=== PATIENT | male | born 2005 | race Caucasian/White ===

== ENCOUNTER 2024-05-15 13:43 | Emergency (ER) | payer BC, SELFPAY ==
[2024-05-15 13:57] VITALS: BP 137/82; PULSE 76; RESP 16; O2SAT 99; BMI 23.0
--- NOTE | 2024-05-15 14:13 | CRLHL7_ITS ---
For Patients: As a result of the Cures Act, medical imaging exams and procedure reports are released immediately into your electronic medical record. You may view this report before your referring provider. If you have questions, please contact your health care provider. INDICATION: Injury and pain. TECHNIQUE: Left foot 3rd digit three views. COMPARISON: None. FINDINGS: Subtle nondisplaced fracture of the distal phalangeal base. Surrounding soft tissue swelling. Joint alignment is maintained. Mild DIP joint degenerative changes. IMPRESSION: Nondisplaced 3rd toe distal phalangeal base fracture. Dictated by Mike Sarah MD @ 05/15/2024 3:23:51 PM (Electronically Signed)
--- OUTSIDE RECORDS SUMMARY | 2024-05-15 14:33 | XMS_ITS | Encounter Summary ---
Author Organization [facility] Address [address] [place] [address] Care Team Providers Care Assessment Specialist Name Role Phone Unavailable Primary Care Provider Unavailabl e Encounter Details Date Type Department Care Team (Late st Contact Info) Description 03/22/2005 8:30 EST Hospital Encounter [address] [address] Robles Velazquez MD [address] [place] [address], [address] 4 [place] [phone] Social History Tobacco Use Types Packs/Day Years Used Date Smoking Tobacco: Never Smokeless Tobacco: Never Alcohol Use Standard Drinks/Week Comments No 0 (1 standard drink = 0.6 oz pur e alcohol) PHQ-2 Answer Date Recorded PHQ-2 SUBTOTAL 0 12/11/2019 Interpersonal Safety Answer Date Record ed Physically Hurt Never 11/07/2019 Verbally Threaten Not on file 11/07/2019 Sex and Gender Information Value Date Recorded Sex Assigned at Not on file Legal Sex Male 18:32 EST Gender Identity Male 02/24/2019 12:07 EST Sexual Orientation Not on file COVID-19 Exposure Response Date Recorded In the last month, have you been in contact with someone who was confirmed or suspected to have Coronavirus / COVID-19? No / Unsure 08/28/2020 11:50 EDT documented as of this encounter Plan of Treatment Not on file documented as of this encounter Visit Diagnoses Not on filedocumented in this encounter
--- OUTSIDE RECORDS SUMMARY | 2024-05-15 14:33 | XMS_ITS | Encounter Summary ---
Author Organization [facility] Address [address] [place] [address] Care Team Providers Care Pit Crew Support Worker Name Role Phone Unavailable Primary Care Provider Unavailabl e Encounter Details Date Type Department Care Team (Late st Contact Info) Description 11/15/2005 8:36 EDT Hospital Encounter [address] [address] Robles Velazquez MD [address] [place] [address], [address] [place] [phone] Social History Tobacco Use Types Packs/Day Years [...]
--- OUTSIDE RECORDS SUMMARY | 2024-05-15 14:33 | XMS_ITS | Encounter Summary ---
Author Organization [facility] Address [address] [place] [address] Care Team Providers Care Shotweld Operator Name Role Phone Unavailable Primary Care Provider Unavailabl e Encounter Details Date Type Department Care Team (Late st Contact Info) Description 05/17/2005 8:34 EST Hospital Encounter [address] [address] Robles Velazquez MD [address] [place] [address], [address] [place] [phone] Social History Tobacco Use Types Packs/Day Years [...]
--- OUTSIDE RECORDS SUMMARY | 2024-05-15 14:33 | XMS_ITS | Referral Summary ---
Author Organization [facility] Address [address] [place] [address] Care Team Providers Care Cartographic Designer Name Role Phone Gildardo Smith MD Primary Care Provider Allergies No known active allergies Medications MULTIVITAMIN ORAL Take by mouth daily. Active Melatonin 1 mg tablet Take 1 Tablet by mouth. Active fish oil/borage/flax/o m3,6,9 1 (OMEGA 3-6-9 COMPLEX ORAL) Take by mouth. Active terbinafine HCL (LAMISIL) 250 mg tablet Take 1 Tablet by mouth daily. 3 Active typhoid vaccine live oral Ty21a (VIVOTIF) capsuleIndication s:Travel advice encounter,Need for immunization against typhoid Take 1 Capsule by mouth every 48 hours. Take 1 HOUR BEFORE eating OR 2 HOURS AFTER eating with a FULL GLASS of cool or lukewarm water. 4 Capsule 3 Active tetanus, diptheria, acellular pertussis vaccine, PF, (ADACEL) IM syringeIndication s:Travel advice encounter,Need for Tdap vaccination Inject 0.5 mL into the muscle Once for 1 dose. 0.5 mL 3 Active atovaquone-progua niL (MALARONE) 250-100 mg per tabletIndications :Travel advice encounter Take 1 Tablet by mouth daily. Start two days before. Every day while travel. 7 days post travel. 130 Tablet 3 Active rabies vaccine, PCEC, (RABAVERT) 2.5 unit injection kitIndications:Adarsh stapleton advice encounter,Need for prophylactic vaccination against rabies Inject 1 mL into the muscle Once for 1 dose. 1 mL 3 Active yellow fever vaccine, PF,, 9 mos+, (YF-VAX) SC injection-vial Inject 0.5 mL into the skin Once for 1 dose. 0.5 mL 3 Active yellow fever vaccine, PF,, 9 mos+, (YF-VAX) SC injection-vialInd ications:Need for prophylactic vaccination against yellow fever Inject 0.5 mL into the skin Once for 1 dose. 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 Overview (07/12/2020): Added automatically from request for surgery [id number] Hammer toe of right foot 07/12/2020 Overview (07/12/2020): Added automatically from request for surgery [id number] Immunizations Name Administration Dates Next Due Rabies Vaccine IM (RABAVERT) 10/29/2022,10/23/19 23 Tdap Vaccine =>7YO IM 10/22/2022 Typhoid Vaccine Oral 10/23/2022 Yellow Fever Vaccine SQ 10/29/2022 Social History Tobacco Use Types Packs/Day Years [...] 12:07 EST Sexual Orientation Not on file Last Filed Vital Signs Vital Sign Reading Time Taken Comments Blood Pressure 106/64 08/28/2020 1800 EDT Pulse 73 12/11/2019 1142 EDT Temperature 36.7 C (98 F) 10/22/2022 1300 EDT Respiratory Rate 17 08/28/2020 1800 EDT Oxygen Saturation 100% 08/28/2020 1800 EDT Inhaled Oxygen Concentration - - Weight 60.3 kg (132 lb 15 oz) 08/28/2020 1247 ED T Height 175.3 cm (5' 9) 08/28/2020 1247 EDT Body Mass Index 19.63 08/28/2020 1247 EDT Plan of Treatment Not on file Medical Devices Explanted Type Area Survey Questionnaire Designer Device Identifier Shelf Expiration Date Model / Serial / Lot K Wire Fixation [place] Smooth Both End 0.62x9in Alfonso [id number] - [id number] Implanted:Qty: 1 Explanted:Qty: 1 on 02/25/2019 by Teto Barraza MD at [facility] Pin Implant Right: First Toe [employer] [id number] / / Insurance [facility] Advance Directives For more information, please contact: [phone] * Full Code (Latest Code Status on File) Date Activated Date Inactivated Comments 08/28/2020 12:36 08/28/2020 21:38 Question Answer Comments Reason for decision includes: Full code consistent with overall plan of care Who participated in the discussion? Not Discusse d * Full Code Date Activated Date Inactivated Comments 02/25/2019 11:32 02/25/2019 17:48 Question Answer Comments Reason for decision includes: Full code consistent with overall plan of care Who participated in the discussion? Not Discusse d Care Teams Cartographic Designer Relationship Specialty Start Date End Date Gildardo Smith MD [address] [place] [phone] PCP - General Pediatrics - Primary Care 04/15/19
--- OUTSIDE RECORDS SUMMARY | 2024-05-15 14:34 | XMS_ITS | Encounter Summary ---
Author Organization [facility] Address [address] [place] [address] Care Team Providers Care Radiologic Technologist Name Role Phone Unavailable Primary Care Provider Unavailabl e Encounter Details Date Type Department Care Team ([facility] st Contact Info) Description 05/09/2004 15:53 EST Hospital Encounter [address] [address] Maxi Soni MD Social History Tobacco Use Types Packs/Day Years [...] on file documented as of this encounter Procedures Procedure Name Priority Date/Time Associated Diagnosis Comments [facility] Routine 05/09/2004 15:49 EST documented in this encounter Results * [facility] (05/09/2004 15:49 EST) Lead <5 0 - 9 ug/dl [facility] Comment:Microtainer Specimen 05/09/2004 15:4 9 EST 05/09/2004 15:52 EST us Maxi Soni MD CHEMISTRY & BLOOD GAS ORDERABLES Final Result [facility] [address] [place] [address] documented in this encounter Visit Diagnoses Not on filedocumented in this encounter
--- OUTSIDE RECORDS SUMMARY | 2024-05-15 14:34 | XMS_ITS | Encounter Summary ---
Author Organization [facility] Address [address] [place] [address] Care Team Providers Care Commodity Specialist Name Role Phone Unavailable Primary Care Provider Unavailabl e Encounter Details Date Type Department Care Team (Late st Contact Info) Description 05/16/2006 8:49 EST Hospital Encounter [address] [address] Robles Velazquez MD [address] [place] [address], [address] [place] [phone] Unknown, Provider, Social History Tobacco Use Types Packs/Day Years [...]
--- OUTSIDE RECORDS SUMMARY | 2024-05-15 14:34 | XMS_ITS | Encounter Summary ---
Author Organization [facility] Address [address] [place] [address] Care Team Providers Care Manager Local Name Role Phone Gildardo Smith MD Primary Care Provider Reason for Visit * Reason Onset Date Comments COVID-19 08/10/2020 Encounter Details Date Type Department Care Team (Late st Contact Info) Description 08/10/2020 Telephone [facility] - [place] [address] [place] [address] Jovanni Pelletier MD [address] [place] [phone] COVID-19 Social History Tobacco Use Types Packs/Day Years [...] 12:07 EST Sexual Orientation Not on file documented as of this encounter Miscellaneous Notes * Telephone Encounter - Julissa, Ian - 08/10/2020 1501 EDT Called patient to schedule COVID-19 testing. Requested a call back @[phone]. This is our 1st attempt at contacting the patient. documented in this encounter Plan of Treatment Not on file documented as of this encounter Visit Diagnoses Not on filedocumented in this encounter Care Teams Manager Local Relationship Specialty Start Date End Date Gildardo Smith MD [address] [place] [phone] PCP - General Pediatrics - Primary Care 04/15/19 documented as of this encounter
--- OUTSIDE RECORDS SUMMARY | 2024-05-15 14:34 | XMS_ITS | Encounter Summary ---
Author Organization [facility] Address [address] [place] [address] Care Team Providers Care Safety Analyst Name Role Phone Gildardo Smith MD Primary Care Provider Encounter Details Date Type Department Care Team (Late st Contact Info) Description 09/16/2021 Lab Requisition [facility] Pathology & Laboratory Medicine - [facility] [address] [place] [address] Ciarra Ahumada MD [address] [place] [phone] Fever, unspecified; Chest pain, unspecified; Contact with and (suspected) exposure to covid-19 Social History Tobacco Use Types Packs/Day Years [...] on file documented as of this encounter Plan of Treatment Not on file documented as of this encounter Procedures Procedure Name Priority Date/Time Associated Diagnosis Comments ZZCOVID-19 TEST [facility] PCR Today 09/16/2021 10:30 EDT Fever, unspecified Chest pain, unspecified Contact with and (suspected) exposure to covid-19 COVID-19 TESTING Today 09/16/2021 10:3 0 EDT Fever, unspecified Chest pain, unspecified Contact with and (suspected) exposure to covid-19 documented in this encounter Results * COVID-19 TEST [facility] PCR (09/16/2021 10:30 EDT) Swab Swab / Unknown 09/16/2021 10 :30 EDT 09/16/2021 15:19 EDT Ciarra Ahumada MD MICROBIOLOGY - GENER AL ORDERABLES Final Result [facility] [address] [place] [address] * COVID-19 TESTING (09/16/2021 10:30 EDT) COVID-19 rt-PCR Result Negative Negative 09/17/2021 12:46 EDT [facility] Comment: This test has not been FDA cleared or approved. This test has been authorized by FDA under an EUA for use by authorized laboratories. This test has been authorized only for detection of nucleic acid from 2019-nCoV, not for any other viruses or pathogens. This test is only authorized for the duration of the declaration that circumstances exist justifying the authorization of emergency use of in vitro diagnostic tests for detection and/or diagnosis of 2019-nCoV under section 564(b)(1) of Act, 21 U.S.C 360bbb-3(b) (1), unless the authorization is terminated or revoked sooner. Negative results do not preclude 2019-nCoV infection and should not be used as the sole basis for treatment or other patient management decisions. Negative results must be combined with clinical observations, patient history, and epidemiological information. Testing was performed using the rashaad SARS-CoV-2 assay ([employer] on the Rashaad 6800 System Performing Lab Rashaad [address] [facility] 09/17/2021 12:46 EDT [facility] Swab Swab / Unknown 09/16/2021 10 :30 EDT 09/16/2021 15:19 EDT us Ciarra Ahumada MD MICROBIOLOGY - GENER AL ORDERABLES Final Result [facility] [address] [place] [address] documented in this encounter Visit Diagnoses Diagnosis Fever, unspecified Chest pain, unspecified Contact with and (suspected) exposure to covid-19 documented in this encounter Care Teams Safety Analyst Relationship Specialty Start Date End Date Gildardo Smith MD [address] [place] [phone] PCP - General Pediatrics - Primary Care 04/15/19 documented as of this encounter
--- OUTSIDE RECORDS SUMMARY | 2024-05-15 14:34 | XMS_ITS | Encounter Summary ---
Author Organization [facility] Address [address] [place] [address] Care Team Providers Care Press Technician Name Role Phone Unavailable Primary Care Provider Unavailabl e Encounter Details Date Type Department Care Team (Late st Contact Info) Description 09/18/2004 13:54 EDT Hospital Encounter [facility] - Other [address] [place] [address] Cas Medina MD [address] [place] [phone] Social History Tobacco Use Types Packs/Day Years [...]
--- OUTSIDE RECORDS SUMMARY | 2024-05-15 14:34 | XMS_ITS | Encounter Summary ---
Author Organization [facility] Address [address] [place] [address] Care Team Providers Care Laundrette Owner Name Role Phone Gildardo Smith MD Primary Care Provider Encounter Details Date Type Department Care Team (Late st Contact Info) Description 11/22/2021 Lab Requisition [facility] Pathology & Laboratory Medicine - [address] [address] Tayla Barfield MD [address] [place] [address] Tinea unguium Social History Tobacco Use Types Packs/Day Years [...] Procedure Name Priority Date/Time Associated Diagnosis Comments SURGICAL PATHOLOGY Today 11/22/2021 8:53 EDT Tinea unguium documented in this encounter Results * SURGICAL PATHOLOGY (11/22/2021 8:53 EDT) Note to Patient The following pathology results have been interpreted by your pathologist and may be available to you before your health provider has had the opportunity to review them. Please allow time for your provider to receive these results and explore management options, if applicable. 11/26/2021 11:44 [facility] Final Diagnosis A. TOENAIL, RIGHT GREAT, CLIPPINGS: - Onychomycosis. 11/26/2021 11:44 [facility] Attestation By the signature below, the attending physician certifies that they have 1) personally conducted a gross and/or microscopic examination of the described specimen(s), and/or personally interpreted the results of laboratory testing of the described specimen(s), and 2) personally rendered or confirmed the above diagnosis. 11/26/2021 11:44 [facility] at 1144 Microscopic Description Sections prepared with PAS-diastase stain consists of multiple portions of nail plate. The nail plate consists of compact keratin with parakeratotic debris and a small amount of entrapped inflammation. Fungal organisms, morphologically consistent with dermatophyte, are present. 11/26/2021 11:44 [facility] Clinical History Discolored nails with onycholysis and subungual debris; onychomycosis 11/26/2021 11:44 [facility] Gross Description A. The requisition accompanying the specimen is initially received mislabeled. In accordance with the Laboratory Specimen Rejection Policy and Laboratory Accountability policy, VIVIENNE Ellsworth spoke with Rula, Front Office Staff, at [facility]. They have verified that the specimen was actually collected from right great toenail, and has taken full responsibility for identifying and re-labelling the requisition with the correct specimen site. Received in formalin labelled with proper patient identification (initials A, M) and right great toenail are two gibson-white to brown fragments of nail (1.4 x 0.3 x 0.1 cm and 0.7 x 0.1 x 0.1 cm). The larger fragment is bisected. Entirely submitted in A1 following softening in 10% potassium hydroxide. MYRON ALDANA 11/23/2021 7:54 11/26/2021 11:44 EDT [facility] Performing Lab [facility] 11:44 EDT [facility] Scanned Images 11/26/2021 11:44 EDT [facility] Tissue ENTIRE NAIL BED / Unknown 11/22/2021 8:53 EDT 11/22/2021 16:22 EDT us Tayla Barfield MD PATHOLOGY ORDERABLES Final Re sult [facility] [address] [place] [address] documented in this encounter Visit Diagnoses Diagnosis Tinea unguium Dermatophytosis of nail documented in this encounter Care Teams Laundrette Owner Relationship Specialty Start Date End Date Gildardo Smith MD [address] [place] [phone] PCP - General Pediatrics - Primary Care 04/15/19 documented as of this encounter
--- OUTSIDE RECORDS SUMMARY | 2024-05-15 14:34 | XMS_ITS | Clinical Summary ---
Author Organization [facility] Address [address] [place] [address] Care Team Providers Care Warehouse Shipping Associate Name Role Phone Gildardo Smith MD Primary [...] (07/12/2020): Added automatically from request for surgery [id number] Hammer toe of right foot 07/12/2020 Overview (07/12/2020): Added automatically from request for surgery [id number] Immunizations Name Administration Dates Next Due Rabies Vaccine IM (RABAVERT) 10/29/2022,10/23/19 23 Tdap Vaccine =>7YO IM 10/22/2022 Typhoid Vaccine Oral 10/23/2022 Yellow Fever Vaccine SQ 10/29/2022 Surgical History Surgery Date Site/Laterality Comments TYMPANOSTOMY TUBE PLACEMENT 08/25/2020-- Mom unsure of age; approximately 1 years old per mom [place] CORRJ HLX VLGS BNCTY [facility] RESCJ PROX PHLX BASE 02/25/2019 First Toe/Right First Toe/Right First Toe/Right First Toe/Right Right great toe nerve decompression burying bone (likely) and soft tissue corrections arthritis recurrence of deformity space between toes nail problem performed by Teto Barraza MD at [facility] [place] Medical devices from this surgery are in the Medical Devices section. [place] CORRJ HLX VLGS BNDEY [facility] PROX PHLX OSTEOT 02/25/2019 First Toe/Right First Toe/Right First Toe/Right First Toe/Right . performed by Teto Barraza MD at [facility] [place] Medical devices from this surgery are in the Medical Devices section. [place] NEUROPLASTY NERVE HAND/FOOT 02/25/2019 First Toe/Right First Toe/Right First Toe/Right First Toe/Right NEUROPLASTY; NERVE, HAND/FOOT performed by Teto Barraza MD at [facility] [place] Medical devices from this surgery are in the Medical Devices section. CHG FLUOROSCOPY UP TO 1 HOUR PHYSICIAN/QHP TIME 02/25/2019 First Toe/Right First Toe/Right First Toe/Right First Toe/Right [id number] - LEAD FLUORO performed by Teto Barraza MD at [facility] [place] Medical devices from this surgery are in the Medical Devices section. Medical History Medical History Date Comments Toe pain 02/12/2019 Repeat ed injuries to right great toe causing pain Eczema hands History of general anesthesia --no complications per mom Activity, other involving cardiorespiratory exercise able to climb 2 FOS without SOB. Anemia borderline per M om Bleeding from the nose 08/25/2020 --Spontaneous per Mom Social History Tobacco Use Types Packs/Day Years [...] 12:07 EST Sexual Orientation Not on file Obstetrics History Last Filed Vital Signs Vital Sign Reading [...] 19.63 08/28/2020 1247 EDT Plan of Treatment Health Maintenance Due Date Last Done Comments Hepatitis C Screen 2003 Hepatitis B Vaccine (1 of 3 - 19+ 3-dose series) 01/27 COVID-19 Vaccine ( season) 2023 Medical Devices Explanted Type Area Biostatistics Manager Device Identifier Shelf Expiration Date Model / Serial / Lot K Wire Fixation [place] Smooth Both End 0.62x9in Alfonso [id number] Implanted:Qty: 1 Explanted:Qty: 1 on 02/25/2019 by Teto Barraza MD at [facility] Pin Implant Right: First Toe [employer] [id number] / / Insurance [facility] Advance Directives For more information, please contact: [phone] * Full Code (Latest Code Status on [...] the discussion? Not Discusse d Care Teams Warehouse Shipping Associate Relationship Specialty Start Date End Date Gildardo Smith MD [address] [place] [phone] PCP - General Pediatrics - Primary Care 04/15/19
--- NOTE | 2024-05-15 15:11 | ED_ITS ---
HPI - Extremity Injury (Lower) General Chief Complaint: Extremity Pain/Injury, Lower Stated Complaint: Third toe left foot hairline fracture Time Seen by Provider: 05/15/24 13:46 History of Present Illness HPI Narrative: Patient is a 19-year-old gentleman who was rough housing in the dorm and unfortunately had his 3rd digit left lower extremity been back. He has pain and swelling over the digit but no other injuries. No skin breakdown. He can bear weight without any difficulty. Patient is on no anticoagulants. 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 Related Data Home Medications ?Medication ?Instructions ?Recorded ?Confirmed No Known Home Medications 05/15/24 05/15/24 Allergies Allergy/AdvReac Type Severity Reaction Status Date / Time No Known Drug Allergies Allergy Verified 05/15/24 13:57 Review of Systems Status of ROS: Reports: 10 or more systems reviewed and unremarkable except as noted in History and below [facility] Social History Smoking Status: Never smoker Do you use any of these nicotine containing products: None Second hand tobacco smoke exposure: No How often do you have a drink containing alcohol: 2-4 times a month How many standard drinks containing alcohol do you have on a typical day: 3 or 4 How often do you have six or more drinks on one occasion: Less than monthly AUDIT-C Alcohol total score: 4 Non-prescribed substance use: denies use service: No Exam Narrative: Exam Narrative: EXAM GENERAL: Patient appears comfortable and well. EYES: No scleral icterus. LYMPH: No supraclavicular or cervical lymphadenopathy. SKIN: Visible skin seen during exam normal or with benign process only. EXT: No dependent lower extremity pedal edema. Bruising and swelling noted 3rd digit left lower extremity. HEART: Regular rate and rhythm with no murmurs, rubs, or gallops. LUNGS: Clear to auscultation bilaterally with no crackles or wheezes. ABD: Soft, non tender, non distended. PSYCH: Good eye contact, speech is not pressured. Const: Vital Signs, click to edit/add: Vital Signs - 24 hr 05/15/24 13:57 Pulse Rate [Pulse Oximeter] 76 Respiratory Rate 16 Blood Pressure [Le ft Upper Arm] 137/82 Pulse Oximetry 99 Oxygen Delivery Me thod Room Air Course Vital Signs Vital signs: Initial Vital Signs Temperature Source Temporal Artery Scan 05/15/24 13:57 Pulse Rate 76 05/15/24 13:57 Pulse Rhythm Regular 05/15/24 13:57 Respiratory Rate 16 05/15/24 13:57 Blood Pressure 137/82 05/15/24 13:57 Blood Pressure Mean 100 05/15/24 13:57 Blood Pressure Position Sitting 05/15/24 13:57 Pulse Oximetry 99 05/15/24 13:57 Oxygen Delivery Method Room Air 05/15/24 13:57 Vital Signs Pulse Rate 76 05/15/24 13:57 Respiratory Rate 16 05/15/24 13:57 Blood Pressure 137/82 05/15/24 13:57 Pulse Oximetry 99 05/15/24 13:57 Oxygen Delivery Method Room Air 05/15/24 13:57 Pulse Rate 76 05/15/24 13:57 Respiratory Rate 16 05/15/24 13:57 Blood Pressure 137/82 05/15/24 13:57 Pulse Oximetry 99 05/15/24 13:57 Oxygen Delivery Method Room Air 05/15/24 13:57 MDM - Extremity Injury (Lower) MDM Narrative Medical decision making narrative: X-ray of the left foot 3rd digit on my review shows a some small questionable hairline fractures. These are nondisplaced require nothing further than a stiff shoe. I did spiritual counselor him on this and recommended Tylenol Motrin ice and rest with primary care follow-up as needed. Discharge Plan Discharge Clinical Impression: Fracture of toe Patient Disposition: Home, Self-Care Condition: Stable Instructions: Toe Fracture (ED) Additional Instructions: Tylenol Motrin Ice Rest Advanced activity as tolerated Stiff shoe. Activity Level: No Restrictions Discharge Diet: Regular Prescriptions: No Action No Known Home Medications Follow Up/Referrals: Provider,Not a Local [Primary Care Provider] - Stand Alone Forms: MyHealth Info Instructions
== END 2024-05-15 15:17 | disposition home or self-care (01) ==
PROVIDERS: Emergency Provider Internal Medicine
DX: S92.502A Displaced unspecified fracture of left lesser toe(s), initial encounter for closed fracture (principal); Y93.83 Activity, rough housing and horseplay
CPT/HCPCS: 73660; 99283